=== PATIENT | male | born 1990 | race Caucasian/White ===

== ENCOUNTER 2024-03-22 04:01 | Day surgery (SDC) | payer OTHER ==
[~2024-03-22] VITALS: Ht 180.3 cm; Wt 86.4 kg
[2024-03-22] VITALS (226 sets, daily range): BP systolic 86–162; BP diastolic 45–118
--- NOTE | 2024-03-22 07:00 | NUR ---
Patient arrived to the ANR suite, identification and demographics confirmed. Patient to room 9, AAO, ambulatory, vitals obtained, ID/allergy/fall bands placed, changed into hospital gown, YESI hose, and non-slip socks. Procedure and timeline explained for treatment and discharge. All questions answered and the patient presents no concerns at this time.
--- NOTE | 2024-03-22 07:20 | NUR ---
Dr. Lopez telephoned with patient intake information including usage, dose, last dose/time taken and initial vital signs. Patient history and allergies reviewed with MD. Orders received for 10 mg PO Valium and 0.2 mg PO Clonidine now. Will reassess per protocol in 1.5 hours and update MD with assessment and vitals.
[2024-03-22] MEDS ORDERED: SCOPOLAMINE 1.5 MG DIS TD PRN (07:30)
[2024-03-22] MEDS ORDERED: FAMOTIDINE 20 MG/TAB PO PRN (07:30)
[2024-03-22] MEDS ORDERED: LACTATED RINGER'S 1,000 ML IV PRN ×3 (07:30→19:00)
[2024-03-22] MEDS ORDERED: diazePAM 5 MG/TAB PO PRN ×2 (07:30→08:30)
[2024-03-22] MEDS ORDERED: ALBUTEROL SULFATE 2.5 MG VIAL IN PRN (07:30)
[2024-03-22] MEDS ORDERED: CYANOCOBALAMIN 500 MCG/TAB ( B12) PO PRN (07:30)
[2024-03-22] MEDS ORDERED: PANTOPRAZOLE SODIUM Sesquihydr 40 MG/TAB PO PRN (07:30)
[2024-03-22] MEDS ORDERED: cloNIDine HCL 0.1 MG/TAB PO PRN (07:30)
[2024-03-22 07:58] LABS: BASO% 0.8 % (0-3); EOS% 0.9 % (0-8); HEMATOCRIT 38.5 % (39.0-50.0); HEMOGLOBIN 12.7 g/dl (14.0-18.0); IMMATURE GRANULOCYTES 0.1 % (0.0-5.0); MEAN CELL VOLUME 87.3 fL CALC (80.0-100.0); MEAN CORPUSCULAR HGB 28.8 pG CALC (26.0-32.0); MONO% 7.6 % (2-13); NEUT# 6.11 thou/uL (1.82-7.42); NEUT% 76.6 % (42-76); RED BLOOD COUNT 4.41 mill/uL (4.70-6.10); RED CELL DISTRI WIDTH 12.1 % (11.5-15.5)
[2024-03-22] MEDS ORDERED: ASCORBIC ACID 4,000 MG in SODIUM CHLORIDE 0.9% 1,000 ML IV SCH (08:00)
[2024-03-22 08:08] LABS: ALBUMIN 4.2 g/dL (3.2-5.0); BILIRUBIN, TOTAL 0.3 mg/dL (0.2-1.3); POTASSIUM 3.8 mmol/l (3.5-5.1); TOTAL PROTEIN 7.1 g/dL (6.3-8.2)
--- NOTE | 2024-03-22 08:20 | NUR ---
Patient resting comfortably in bed. Easily aroused, maintains focus, and drifts back to sleep. No signs of active withdrawal or distress noted at this time. Continuous SPO2, rhythm, and respiratory monitoring initiated. IVF @ 250 mL/HR, room air, VSS.
[2024-03-22] MEDS ORDERED: PROPOFOL 10 MG/ML 100ML VIAL IV PRN (08:30)
[2024-03-22] MEDS ORDERED: DiphenhydrAMINE HCL 50 MG/ML SDV IV PRN (08:30)
[2024-03-22] MEDS ORDERED: NALTREXONE HCL 50 MG/TAB VT PRN (08:30)
[2024-03-22] MEDS ORDERED: MAGNESIUM SULFATE HEPTAHYDRATE 100 ML IV PRN (08:30)
[2024-03-22] MEDS ORDERED: DEXAMETHASONE SODIUM PHOSPHATE PF 10 MG/ML SDV IV PRN ×2 (08:30→19:00)
[2024-03-22] MEDS ORDERED: OCTREOTIDE ACETATE 100 MCG/VIAL SDV SC PRN (08:30)
[2024-03-22] MEDS ORDERED: STERILE WATER FOR IRRIGATION 1,000 ML BTL IR PRN (08:30)
[2024-03-22] MEDS ORDERED: PROPOFOL 100 ML IV PRN (08:30)
[2024-03-22] MEDS ORDERED: ONDANSETRON HCl 4 MG/2 ML SDV IV PRN ×3 (08:30→19:00)
[2024-03-22] MEDS ORDERED: SUCCINYLCHOLINE CHLORIDE 20 MG/ML 10ML VIAL IV PRN (08:30)
[2024-03-22] MEDS ORDERED: cloNIDine HCL 0.1 MG/TAB VT PRN (08:30)
[2024-03-22] MEDS ORDERED: MIDAZOLAM HCL 2 MG/2 ML VIAL IV PRN (08:30)
[2024-03-22] MEDS ORDERED: LIDOCAINE HCL 1% (10MG/ML) 100 MG/10 ML MDV VT PRN ×2 (08:30)
[2024-03-22] MEDS ORDERED: ROCURONIUM BROMIDE 10 MG/ML 5ML VIAL IV PRN (08:30)
[2024-03-22] MEDS ORDERED: diazePAM 5 MG/TAB VT PRN (08:30)
[2024-03-22] MEDS ORDERED: LIDOCAINE HCL 1% (10MG/ML) 100 MG/10 ML MDV IV PRN (08:30)
[2024-03-22] MEDS ORDERED: cloNIDine HYDROCHLORIDE 100 MCG/ML 10 ML INJ IV PRN (08:30)
[2024-03-22] MEDS ORDERED: THIAMINE HCL 100 MG/ML 2ML VIAL IV PRN (08:30)
--- NOTE | 2024-03-22 08:45 | NUR ---
Dr. Lopez at bedside to assess pt and discuss POC and procedure.
[2024-03-22] MEDS ORDERED: POTASSIUM CHLORIDE 20 MEQ/100 ML BAG IV PRN (09:35)
--- NOTE | 2024-03-22 09:36 | NUR ---
Induction Note Patient to ANR procedure room. Time out performed at 0918. Patient placed on monitors, Jason hugger, bilateral wrist restraints applied for ET tube protection. Versed 5mg given IV push at 0922 Tourniquet applied to right arm Lidocaine 100mg given at 0931 IV push followed by Rocoronium 10mg at 0932 IV push and held for 90 seconds. Propofol bolus of 130mg given at 0934 IV push. Succinylcholine 80mg given IV push at 0935. Smooth intubation with 7.5 ETT. Positive CO2. Positive Auscultation for air exchange. ET tube secured with tube villasenor 22 @ the lip. Patient placed on ventilator for spontaneous ventilation. Placed on Propofol IV drip at 0936. OG inserted. Positive air on auscultation. Positive gastric content. Stomach washed at this time.
--- NOTE | 2024-03-22 09:50 | NUR ---
OG close note Stomach washed at this time. Naltrexone 50 mg with Clonidine 0.1 mg via OG tube. OG will be clamped for 45 minutes.
--- NOTE | 2024-03-22 10:35 | NUR ---
OG open note OG open at this time. Gastric content draining into drainage bag. OG to drain for 45 minutes. Propofol will be titrated down based on patient.
--- NOTE | 2024-03-22 11:20 | NUR ---
OG close note Stomach washed at this time. Naltrexone 50 mg with Clonidine 0.3 mg via OG tube. OG will be clamped for 45 minutes.
--- NOTE | 2024-03-22 12:50 | NUR ---
OG close note Stomach washed at this time. Naltrexone 50 mg with Clonidine 0.3 mg via OG tube. OG will be clamped for 45 minutes.
[2024-03-22] MEDS ORDERED: NALTREXONE50 MG PO (13:45)
[2024-03-22] MEDS ORDERED: CLONIDINE0.1 MG PO (13:45)
[2024-03-22] MEDS ORDERED: KLONOPIN2 MG PO (13:45)
--- NOTE | 2024-03-22 14:20 | NUR ---
No OG close at this time. Patient minimally reacting to treatment. Vitals, total Naltrexone & Clonidine, current Propofol infusion rate, treatment duration, and patient assessment discussed with Dr. Lopez. No orders for medication administration at this time. OG will remain open to allow time for patient to continue reacting to therapy.
--- NOTE | 2024-03-22 15:20 | NUR ---
OG close note Stomach washed at this time. Valium 10mg with Clonidine 0.1 mg via OG tube. OG will be clamped for 20-30 minutes for closing dose.
--- NOTE | 2024-03-22 15:48 | NUR ---
Extubation note Closing medications given Benadryl 50mg IV push, Decadron 10mg IV push,Magnesium 4 grams IV, Zofran 8mg IV push, Octreotide 100mcg SC. Stomach washed out prior to extubation. Suctioned gastric content. OG removed. Patient extubated. Propofol Discontinued. Wrist restraints removed. Jason hugger Removed. See ANR Moderate sedate recovery record for further notes and assessment.
--- NOTE | 2024-03-22 16:01 | NUR ---
all pt personal belongings stored in locker red #1 in ANR department.
--- NOTE | 2024-03-22 17:23 | NUR ---
Patient to room 284 in no acute distress. Transfer of care to [facility], bedside report provided. 2L NC placed per orders, IVF to continue at 100ml/hr. VSS. Patient resting comfortably, no adventitious breath sounds appreciated. Bed alarm set. See chart/EMAR for procedural details and assessments. Handoff of care at the time of this note.
--- NOTE | 2024-03-22 17:25 | NUR ---
PATIENT ARRIVED TO ID FROM ANR . PATIENT SLEEPING IN BED; ON 3L OF 02; BREATHING UNLABORED AND EVEN; EYE COVERING ALREADY IN PLACED; VITALS STABLE; PERSONAL ITEMS IN ANR LOCKER; NO S/S OF DISTRESS AT THIS TIME; BESIDE REPORT WAS GIVEN FROM LINETTE BURGOS; IV SITE CLEAN AND INTACT RUNNING WITH LR @100; CALL LIGHT WITHIN REACH, BED IN LOWEST POSTION; BED ALARM ACTIVATED
--- NOTE | 2024-03-22 17:28 | NUR ---
phone call placed to pt mother. updated provided at this time. all questions and concerns addressed.
[2024-03-22] MEDS ORDERED: HALOPERIDOL LACTATE 5 MG/ML SDV IV PRN (19:00)
[2024-03-22] MEDS ORDERED: ACETAMINOPHEN 500 MG TAB PO PRN (19:00)
[2024-03-22] MEDS ORDERED: ACETAMINOPHEN 1,000 MG/100 ML VIAL IV PRN (19:00)
[2024-03-22] MEDS ORDERED: KETOROLAC TROMETHAMINE 30 MG/ML SDV IV PRN (19:00)
[2024-03-22] MEDS ORDERED: PROMETHAZINE HCL 25 MG in SODIUM CHLORIDE 0.9% 50 ML IV PRN (19:00)
[2024-03-22] MEDS ORDERED: LORazepam 2 MG/ML IV PRN ×2 (19:00)
[2024-03-22] MEDS ORDERED: PROMETHAZINE HCL 12.5 MG in SODIUM CHLORIDE 0.9% 50 ML IV PRN (19:00)
--- NOTE | 2024-03-22 20:30 | NUR ---
RECEIVED REPORT FROM [facility] NURSE VIDA. PT NOTED LAYING IN BED, TOSSING AND TURNING, TRIES TO SIT UP BUT DOES FOLLOW DIRECTIONS WHEN ENCOURAGED TO LAY BACK DOWN. PT IS DISORIENTED AND CONFUSED, ABLE TO GIVE VERBAL RESPONSES WITH GARBLED SPEECH. PT IS ON 3L O2 NC, PT DOES KEEP TRYING TO REMOVE IT, NC PUT BACK INTO PLACE AND ENCOURAGE NOT TO PULL OFF. PT DENIES ANY P/N/V AT THIS TIME. ORAL SUCTION USED TO CLEAN SECRETIONS IN PT ORAL CAVITY, PT TOLERATED WELL. PT DOES HAVE LARGE AMOUNTS OF SPUTUM AND SECRETIONS IN ORAL CAVITY. PT HAD TWO IV SITES, HOWEVER PT PULLED BOTH OUT, CATHETERS WERE INTACT. NEW IV START ATTEMPTED, SUCCESFUL IN LT HAND. INFORMED PT OF IMPORTANCE OF IV AND MEDICATION AND ENCOURAGED NOT TO PULL OUT. WILL NEED TO CONTINUE TO REDIRECT AND REORIENT. GRAIN MILL WORKER THEN ASSISTED WATERPROOF COATING MACHINE TENDER WITH CHANGING PT OF INC EPISODE. CLEAN BRIEF PUT ON. NO S/S OF DISTRESS. VSS. WATERPROOF COATING MACHINE TENDER AT DOORWAY. BED ALARM ON AND SAFETY PRECAUTIONS IN PLACE.
[2024-03-22] MEDS ORDERED: PATIENT' OWN MED CONTROLLED 1 EA DOSE IV PRN (21:00)
--- NOTE | 2024-03-22 22:02 | NUR ---
PT BED ALARM WAS GOING OFF, AND WAGNER MCPHERSON WERE ACROSS THE CORNELIUS ASSISTING ANOTHER PT AT THE TIME ALARM WAS HEARD. BOTH RESIDENT CARE MANAGER AND WAGNER IMMEDIATLY RAN TO ROOM AND SEEN PT WITH ONE LEG OVER BOTTOM BED RAIL ON THE FLOOR WHILE LIFTING THE OTHER. RESIDENT CARE MANAGER WAS ABLE TO GRAB HOLD OF PT HOWEVER PT BALANCE WAS UNSTEADY AND RESIDENT CARE MANAGER ASSISTED PT TO THE FLOOR ON KNEELING POSITION. PT WAS STATING "I HAVE TO PEE, I HAVE TO PEE" RESIDENT CARE MANAGER AND WAGNER MCPHERSON ASSISTED WITH STANDING PT UP AND SITTING HIM UP ON SIDE OF BED. PT IS DISORIENTED, UNABLE TO KEEP HEAD UP. NO VISIBLE INJURIES NOTED TO PT KNEES OR LOWER EXTREMETIES. PT DENIES ANY PAIN OR INJURY. RESIDENT CARE MANAGER AND WAGNER MCPHERSON DID OFFER URINAL TO PT, PT BRIEF WAS DRY. AFTER A FEW MINUTES OF ENCOURAGING PT TO USE URINAL HE THEN STATED "I CANT PEE RIGHT NOW" PT WAS THEN POSITIONED BACK INTO BED ON RT SIDE. NASAL CANNULA PUT BACK IN PLACE, IV SITE APPEARS HEALTHY AND INTACT WITH IVF PER EMAR. BED ALARM ON AND SAFETY PRECAUTIONS IN PLACE. WAGNER MCPHERSON IS SITTING AT BEDISDE. NURSING DOCK LOADER WAS INFORMED, WELL OF PT FALL. NO NEW ORDERS GIVEN AT THIS TIME.
--- NOTE | 2024-03-22 22:25 | NUR ---
MYSELF AND NURSE ROSARIO WERE ACROSS THE CORNELIUS ASSISTING ANOTHER PATIENT WHEN WE HEARD PATIENT BRUNO'S BED ALARM GO OFF. HE WAS ALSO STATING THAT HE HAD TO PEE WHILE CLIMBING OVER THE SIDE RAILS. WE RUSHED OVER IMMEDIATELY AND THE NURSE WAS ABLE TO ASSIST HIM TO HIS KNEES. WE THEN ASSISTED HIM UP ON HIS FEET AND THEN SAT HIM ON THE SIDE OF THE BED AND ASSISTED HIM TO USING THE URINAL. HE STATED THAT HE COULDN'T GO AT THE TIME SO WE ASSISTED HIM BACK TO BED. BED ALARM WAS REACTIVATED. MYSELF SITTING AT BEDSIDE.
[2024-03-22] MEDS ORDERED: cloNIDine HCL 0.1 MG/TAB PO SCH (23:00)
[2024-03-22] MEDS ORDERED: clonazePAM 1 MG/TAB PO PRN (23:00)
--- NOTE | 2024-03-22 23:00 | NUR ---
PT PULLED OUT NEW IV IN LT HAND, CATHETER WAS INTACT. WILL ATTEMPT NEW IV ACCESS.
--- NOTE | 2024-03-23 01:29 | NUR ---
PT HAS BEEN NON COMPLIANT WITHSTARTING A NEW IV. PT BECAME COMBATIVE TRYING TO HIT AND SPIT AT COUNTER STACKER AND STAFF ATTMEPTING TO GAIN NEW ACCESS. PT CURRENTLY LAYING IN BED SUPINE, RSTING COMFORTABLY. NASAL CANNULA IN PLACE. COUNTER STACKER AT BEDSIDE, BED ALARM ON AND SAFETY PRECAUTIONS IN PLACE.
[2024-03-23 03:51] VITALS: BP 120/80
[2024-03-23] MEDS ORDERED: clonazePAM 1 MG/TAB PO PRN ×2 (04:00→08:00)
[2024-03-23] MEDS ORDERED: cloNIDine HCL 0.1 MG/TAB PO PRN (04:00)
[2024-03-23] MEDS ORDERED: NALTREXONE HCL 50 MG/TAB PO SCH ×2 (04:00→09:00)
--- NOTE | 2024-03-23 04:39 | NUR ---
ADMINISTERED PT 0400 MEDICATIONS PER EMAR, PT TOLERATED WELL. PT PRESENTS MORE ALERT AND ORIENTED AT THIS TIME. PT DENIES ANY N/V/P BUT REQUEST TO USE BATHROOM. GEOLOGY TEACHER ASSISTED PT TO BATHOOM, GAIT WAS WEAK BUT STEADY. PT VOIDED WITHOUT DIFFICULTY. ASSISTED BACK INTO BED. INFORMED PT OF NEED FOR IV SITE. PT WAS COMPLIANT, HOWEVER ATTEMPTS FOR NEW IV WERE UNSUCCEFULL. NURSING TEST RACK OPERATOR INFORMED AND WILL MAKE AN ATTEMPT. PT LAYING IN BED SEMI FOWLERS. NO S/S OF DISTRESS. BED ALARM ON AND SAFETY PRECAUTIONS IN PLACE.
[2024-03-23 05:31] LABS: BASO% 0.1 % (0-3); HEMATOCRIT 38.2 % (39.0-50.0); HEMOGLOBIN 12.5 g/dl (14.0-18.0); IMMATURE GRANULOCYTES 0.5 % (0.0-5.0); LYMPH% 4.6 % (15-41); MEAN CELL VOLUME 89.9 fL CALC (80.0-100.0); MEAN CORPUSCULAR HGB 29.4 pG CALC (26.0-32.0); MEAN CORPUSCULAR HGB CONC 32.7 g/dL CAL (32.0-36.0); MONO% 5.3 % (2-13); NEUT# 17.53 thou/uL (1.82-7.42); NEUT% 89.5 % (42-76); RED BLOOD COUNT 4.25 mill/uL (4.70-6.10); RED CELL DISTRI WIDTH 11.9 % (11.5-15.5)
[2024-03-23 05:49] LABS: ALBUMIN 3.8 g/dL (3.2-5.0); MAGNESIUM 2.6 mg/dL (1.6-2.3); TOTAL PROTEIN 6.6 g/dL (6.3-8.2)
[2024-03-23 05:51] LABS: BILIRUBIN, TOTAL 0.5 mg/dL (0.2-1.3)
[2024-03-23 07:52] VITALS: BP 111/61
[2024-03-23] MEDS ORDERED: ACETAMINOPHEN 325 MG/TAB PO SCH (08:00)
[2024-03-23] MEDS ORDERED: cloNIDine HCL 0.1 MG/TAB PO SCH (08:00)
[2024-03-23] MEDS ORDERED: PANTOPRAZOLE SODIUM Sesquihydr 40 MG/TAB PO SCH (08:00)
--- NOTE | 2024-03-23 08:15 | NUR ---
patient drowsy at this time; room air; breathing unlabored and even; patient have widen pupils and some sneezing, addional naltrexone was ordered per Dr. Lopez, no n/d/v at this time; denied any pain; patient tolerated medication admin, encouraged patient to try to eat breakfast when can; call light within reach, bed in lowest postion; bed alarm actiavted
[2024-03-23] MEDS ORDERED: MAGNESIUM OXIDE 400 MG/TAB PO PRN (09:00)
[2024-03-23] MEDS ORDERED: Cholecalciferol 2,000 UNIT/TAB PO PRN (09:00)
[2024-03-23] MEDS ORDERED: ACETAMINOPHEN 500 MG TAB PO PRN (09:00)
--- NOTE | 2024-03-23 10:05 | NUR ---
patient keeps asking for her personal belongings , informed patient that he will get his items torwards the afternoon, the first part of the day is for resting, informed him that he is still drowsy and and disorinated at some points, patient aggreed
--- NOTE | 2024-03-23 11:34 | NUR ---
patient ambulated to bathroom and took shower with no issues; iv site dislogged, removed with no issues;
== END 2024-03-23 15:46 | disposition home or self-care (01) | DRG 897 ==
LOC: MS2 04:01 → ANR 04:01 → MS2 04:09 → ANR 08:00 → MS2 17:50 → ANR 03-23 15:46
PROVIDERS: ATTEND Anesthesiology
DX: F11.20 Opioid dependence, uncomplicated (principal)
CPT/HCPCS: J1100; J2060; J2354; J3475; J3490